=== PATIENT | male | born 1970 | race Caucasian/White ===

== ENCOUNTER 2017-07-07 13:40 | Emergency (ER) | payer MEDICAID ==
[~2017-07-07] VITALS: Ht 162.6 cm; Wt 86.4 kg
[2017-07-07 14:00] VITALS: BP 119/79
--- NOTE | 2017-07-07 17:29 | NUR ---
Patient to OF.
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
[2017-07-07] MEDS ORDERED: IBUPROFEN 800 MG TAB PO ONE (18:25)
[2017-07-07] MEDS ORDERED: KETOROLAC 60 MG/2 ML VIAL IM ONE (18:35)
[2017-07-07] MEDS ORDERED: LIDOCAINE/EPI 1% 1:100000 20 ML VIAL INJ ONE (18:45)
--- NOTE | 2017-07-07 18:45 | NUR ---
LAC REPAIRED BY
[2017-07-07] MEDS ORDERED: LIDOCAINE/EPI 2% 1:100000 20 ML VIAL INJ ONE (18:55)
[2017-07-07 19:18] VITALS: BP 132/81
--- NOTE | 2017-07-07 19:18 | NUR ---
Patient discharged with v/s stable. Written and verbal after care instructions given and explained. Patient verbalized understanding. Ambulatory with steady gait. All questions addressed prior to discharge. Advised to follow up with PMD.
== END 2017-07-07 19:18 | disposition home or self-care (01) ==
LOC: MED 14:00
DX: S61.531A Puncture wound without foreign body of right wrist, initial encounter (principal); W26.0XXA Contact with knife, initial encounter; Y93.89 Activity, other specified; Y92.89 Other specified places as the place of occurrence of the external cause; Y99.8 Other external cause status
CPT/HCPCS: 12001; 90471; 90715; 96372; 99284; J1885; J2001

== ENCOUNTER 2017-11-01 10:55 | Emergency (ER) | payer MEDICAID, OTHER ==
[~2017-11-01] VITALS: Ht 160 cm; Wt 87.7 kg
[2017-11-01 11:41] VITALS: BP 137/100
--- NOTE | 2017-11-01 11:45 | NUR ---
PT AMBULATES BACK TO THE LOBBY
--- NOTE | 2017-11-01 12:13 | NUR ---
Patient ambulated to bed 2. RN evaluating patient at bedside.
--- NOTE | 2017-11-01 12:40 | NUR ---
PT LAYING IN BED ON LEFT SIDE, REPORTS PAIN TO RECTAL AREA X 5DAYS, GETTING WORSE. DENIES ANY RECTAL BLEEDING AT THIS TIME, JUST VERY PAINFUL TO AMBULATE OR SIT DOWN. RESPE EVNA DN UNLABORED, ON RA@99%. DENIES FEVERS/CHILLS, N/V/D. WAITING FOR ER MD BENITEZ.
--- NOTE | 2017-11-01 13:07 | NUR ---
ER MD AT BEDSIDE FOR RECTAL EXAM.
[2017-11-01] MEDS ORDERED: LIDOCAINE 1% ***ER ONLY *** 10 MG/ML VIAL INJ ONE (13:45)
[2017-11-01] MEDS ORDERED: HYDROmorphone 1 MG/ML AMP IM ONE (13:45)
[2017-11-01] MEDS ORDERED: CLINDAMYCIN 600 MG/4 ML VIAL IM ONE (13:45)
[2017-11-01] MEDS ORDERED: diphenhydrAMINE 50 MG/ML VIAL IM ONE (13:45)
[2017-11-01] MEDS ORDERED: HYDROmorphone PFS 2 MG/ML SYR ONE (14:21)
--- NOTE | 2017-11-01 14:29 | NUR ---
PT LAYING IN BED PRONINE POSITION, IN NAD. WAIITNG FOR HEMMOROIDECTOMY BY ER , ANTHONY. PAIN CONTROLLED
[2017-11-01 16:59] VITALS: BP 115/77
--- NOTE | 2017-11-01 17:00 | NUR ---
Patient discharged with v/s stable. Written and verbal after care instructions given and explained. Patient alert, oriented and verbalized understanding of instructions. Ambulatory with steady gait. All questions addressed prior to discharge. ID band removed. Patient advised to follow up with PMD. Rx of tramadol, given. Patient educated on indication of medication including possible reaction and side effects. Opportunity to ask questions provided and answered.
== END 2017-11-01 17:00 | disposition home or self-care (01) ==
LOC: MED 10:55
DX: K64.5 Perianal venous thrombosis (principal)
CPT/HCPCS: 10060; 96372; 99284; J1170; J1200; J3490

== ENCOUNTER 2018-12-03 14:13 | Emergency (ER) | payer SELFPAY ==
[~2018-12-03] VITALS: Ht 160 cm; Wt 81.6 kg
--- NOTE | 2018-12-03 14:15 | NUR ---
PT AMBULATES TO BED 9
[2018-12-03 14:17] VITALS: BP 136/78
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
[2018-12-03] MEDS ORDERED: KETOROLAC 60 MG/2 ML VIAL IM ONE (15:05)
[2018-12-03] MEDS ORDERED: traMADol 50 MG TAB PO ONE (15:05)
[2018-12-03 16:54] VITALS: BP 124/89
--- NOTE | 2018-12-03 16:54 | NUR ---
Patient discharged with v/s stable. Written and verbal after care instructions given and explained. Patient verbalized understanding. Ambulatory with crutches provided. All questions addressed prior to discharge. Advised to follow up with PMD. Addendum: 12/03/18 at 1654 by JEFF RT KNEE XRAY CD COPY PROVIDED
== END 2018-12-03 16:54 | disposition home or self-care (01) ==
LOC: MED 14:13
DX: S83.91XA Sprain of unspecified site of right knee, initial encounter (principal); W17.89XA Other fall from one level to another, initial encounter; Y93.89 Activity, other specified; Y92.89 Other specified places as the place of occurrence of the external cause; Y99.8 Other external cause status
CPT/HCPCS: 29505; 73562; 96372; 99283; J1885; Q0092

== ENCOUNTER 2020-12-09 09:53 | Emergency (ER) | payer SELFPAY ==
[~2020-12-09] VITALS: Ht 160 cm; Wt 93.6 kg
[2020-12-09 09:57] VITALS: BP 139/65
--- NOTE | 2020-12-09 10:02 | NUR ---
PATIENT AMBULATED TO BED 11.
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
--- NOTE | 2020-12-09 10:26 | NUR ---
PT TAKEN TO XRAY VIA WHEELCHAIR
--- NOTE | 2020-12-09 11:21 | NUR ---
PT PLACED IN ALUMINUM FROG FINGER SPLINT CMS WNL BEFORE AND AFTER
[2020-12-09 11:25] VITALS: BP 139/65
== END 2020-12-09 11:26 | disposition home or self-care (01) ==
LOC: MED 09:53
DX: S67.192A Crushing injury of right middle finger, initial encounter (principal); R03.0 Elevated blood-pressure reading, without diagnosis of hypertension; F17.290 Nicotine dependence, other tobacco product, uncomplicated; Z98.890 Other specified postprocedural states; W22.8XXA Striking against or struck by other objects, initial encounter; Y93.89 Activity, other specified; Y92.89 Other specified places as the place of occurrence of the external cause; Y99.8 Other external cause status
CPT/HCPCS: 73140; 99283